=== PATIENT | male | born 1985 | race Caucasian/White ===

== ENCOUNTER → 2020-04-01 | Outpatient (CLI) | payer OTHER ==
--- NOTE | 2020-04-01 12:56 | RAD ---
EXAM: Lumbar spine, 3 views. HISTORY: Pain. COMPARISON: None. FINDINGS: 3 views of the lumbar spine are obtained. 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 There is no listhesis. The vertebral bodies are normal in height and the disc spaces are preserved. IMPRESSION: 1. Transitional thoracolumbar segment, a normal variant. 2. No acute osseous finding. Electronically signed by: Debby Olmstead MD (04/01/2020 12:53 PM) [facility]
== END | disposition home or self-care (01) ==
LOC: DXRAD 11:01
PROVIDERS: ATTEND Family Medicine
DX: M54.5 Low back pain (principal); G89.29 Other chronic pain
CPT/HCPCS: 72100